=== PATIENT | male | born 1960 | race Caucasian/White ===

== ENCOUNTER → 2021-05-23 | Day surgery (SDC) | payer OTHER ==
[~2021-05-23] MED LIST: GABAPENTIN300 MG PO; HYDROCODON-ACE1 EAC2 PO; INDERAL TAB 4040 MG PO; INDOCIN 50 MG C50 MG PO; ROPINIROLE HCL2 MG PO; VENLAFAXINE HC150 MG PO; ZANAFLEX 4 MG TA4 MG PO
[2021-05-23 07:16] LABS: BUN/CREATININE RATIO 15 (0-10)
== END | disposition home or self-care (01) ==
LOC: OR 05:39
PROVIDERS: Orthopaedic Surgery
DX: M65.331 Trigger finger, right middle finger (principal); Z98.1 Arthrodesis status; Z96.82 Presence of neurostimulator; Z20.822 Contact with and (suspected) exposure to COVID-19; G43.909 Migraine, unspecified, not intractable, without status migrainosus; G89.4 Chronic pain syndrome; G25.81 Restless legs syndrome
CPT/HCPCS: 36415; 71045; 80048; 93005; J1100; J2001; J2250; J2405; J2704; J3010; J7120; U0002